=== PATIENT | female | born 1990 | race American Indian/Alaskan Native ===

== ENCOUNTER 2016-10-21 09:54 | Outpatient (CLI) | payer BC ==
[2016-10-21] MEDS ORDERED: LACTATED RINGERS 500 ML IV ONE (10:52)
[2016-10-21 10:57] VITALS: BP 115/70
[2016-10-21 10:59] LABS: Urine Drugs of Abuse Note Disclamer
[2016-10-21 11:15] LABS: Bilirubin,Urine NEG (Negative); Blood,Urine NEG (Negative); Ketones,Urine NEG (Negative); Leukocyte Esterase,Urine NEG (Negative); Mucus,Urine FEW /HPF; Nitrite,Urine NEG (Negative); Protein,Urine <15 mg/dL mg/dL (Negative); Urobilinogen,Urine < 2.0 mg/dL (<2.0); WBC,Urine < 1.0 /HPF (0.0-6.0)
== END 2016-10-21 11:21 | disposition home or self-care (01) ==
LOC: EDBD 09:54 → TRG 09:54
PROVIDERS: ATTEND Obstetrics & Gynecology
DX: O47.02 False labor before 37 completed weeks of gestation, second trimester (principal); Z3A.25 25 weeks gestation of pregnancy
CPT/HCPCS: 59025; 80307; 81001